=== PATIENT | female | born 1970 | race Caucasian/White ===

== ENCOUNTER → 2017-03-14 | Outpatient (CLI) | payer BC ==
[~2017-03-14] MED LIST: ACYCLOVIR 200200 MG PO; BUPROPION; ECHINACEA OR; LORTAB 5 MG/5001 TA1 PO; PRISTIQ50 MG PO; VITAMIN C100 M1 PO; VITAMIN D OR; ZINC OR
== END ==
LOC: RAD 10:33
DX: J98.11 Atelectasis (principal)

== ENCOUNTER → 2019-08-04 | Outpatient (CLI) | payer OTHER | LOC: LAB 09:50 | PROVIDERS: ATTEND Family Medicine | DX: Z20.818 Contact with and (suspected) exposure to other bacterial communicable diseases (principal) ==